=== PATIENT | male | born 1960 | race Caucasian/White ===

== ENCOUNTER 2016-11-17 00:17 | Emergency (ER) | payer BC, MEDICAID ==
[2016-11-17] MEDS ORDERED: Sodium Chloride 0.9% 1,000 ML IV ONE ×2 (00:41→03:30)
[2016-11-17 00:48] LABS: BASO % 0.5 % (0.0-2.0); EOS # 0.1 K/uL (0.0-0.7); EOS % 1.4 % (0.0-4.0); HEMATOCRIT 44.3 % (35.0-51.0); LYMPH # 3.4 K/uL (1.0-4.3); LYMPH % 54.8 % (20.0-40.0); MEAN CORPUSCULAR HEMOGLOBIN 30.8 pg (27.0-31.0); MEAN CORPUSCULAR HGB CONC 33.5 g/dL (33.0-37.0); MEAN PLATELET VOLUME 9.2 fL (7.2-11.7); MONO # 0.4 K/uL (0.0-0.8); MONO % 6.8 % (0.0-10.0); NRBC % 0.1 % (0.0-2.0); RED CELL DISTRIBUTION WIDTH 14.1 % (11.5-14.5); WHITE BLOOD COUNT 6.2 K/uL (4.8-10.8)
[2016-11-17 00:58] LABS: CHLORIDE 103 mmol/L (98-107)
[2016-11-17 00:59] LABS: SODIUM 141 mmol/L (132-148)
[2016-11-17 01:01] LABS: AST/SGOT 40 U/L (17-59); BILIRUBIN,TOTAL 0.4 mg/dL (0.2-1.3); CARBON DIOXIDE 20 mmol/L (22-30); GFR AFRICAN-AMERICAN > 60
[2016-11-17 01:02] LABS: ALKALINE PHOSPHATASE 49 U/L (38-126); ALT/SGPT 44 U/L (21-72); BLOOD UREA NITROGEN 14 mg/dL (9-20); CALCIUM 8.9 mg/dl (8.6-10.4); GLUCOSE,RANDOM 164 mg/dL (75-110)
--- NOTE | 2016-11-17 01:11 | CT ---
EXAM: CT Head Without Intravenous Contrast CLINICAL HISTORY: 55 years old, male; Pain; Headache; Additional info: Fall TECHNIQUE: Axial computed tomography images of the head/brain without intravenous contrast. All CT scans at this facility use one or more dose reduction techniques, viz.: automated exposure control; ma/kV adjustment per patient size (including targeted exams where dose is matched to indication; i.e. head); or iterative reconstruction technique. Coronal and sagittal reformatted images were created and reviewed. COMPARISON: No relevant prior studies available. FINDINGS: Brain: No intracranial hemorrhage. No mass. No edema. Ventricles: No hydrocephalus. Bones/joints: No acute fracture. Soft tissues: Unremarkable. Vasculature: Mild atherosclerotic disease of intracranial arteries. Sinuses: Mild mucosal thickening of LEFT maxillary sinus. Scattered minimal mucosal thickening of remaining sinuses. Mastoid air cells: No mastoid effusion. Orbits: Unremarkable as visualized. IMPRESSION: 1. No intracranial hemorrhage. 2. Incidental/non-acute findings are described above.
--- NOTE | 2016-11-17 01:19 | C.PDOC ---
History Of Present Illness Patient is a 55 y/o male who presents to the ED by EMS with a complaint of alcohol intoxication. Patient's states patient drank a lot at a green party tonight and was found on the bathroom floor unresponsive. Patient currently awake and vomiting. No other complaints at this time. Chief Complaint (Nursing): Substance Abuse History Per: Patient, Family () History/Exam Limitations: no limitations Onset/Duration Of Symptoms: Hrs (symptoms began tonight at a green party) Current Symptoms Are (Timing): Still Present Modifying Factor(s): Alcohol Recent travel outside of the [place]: No Additional History Per: Patient, Past Medical History Reviewed: Historical Data, Nursing Documentation, Vital Signs Vital Signs: Last Vital Signs Temp 97.4 F L 11/17/16 04:30 Pulse 83 11/17/16 04:30 Resp 16 11/17/16 04:30 BP 137/84 11/17/16 04:30 Pulse Ox 95 11/17/16 05:35 - Medical History PMH: No Chronic Diseases Surgical History: No Surg Hx Family History: States: Unknown Family Hx - Social History Hx Tobacco Use: No Hx Alcohol Use: Yes Hx Substance Use: No - Immunization History Hx Tetanus Toxoid Vaccination: No Hx Influenza Vaccination: Yes Hx Pneumococcal Vaccination: No Review Of Systems Constitutional: Positive for: Other (intoxicated). Negative for: Fever, Chills Gastrointestinal: Positive for: Vomiting (s/p fall ) Physical Exam - Physical Exam Appears: Other (lethargic) Skin: Normal Color, Warm, Dry Head: Atraumatic, Normacephalic Oral Mucosa: Moist Chest: Symmetrical Cardiovascular: Rhythm Regular, No Murmur Respiratory: Normal Breath Sounds, No Rales, No Rhonchi, No Wheezing Extremity: Normal ROM (x4) ED Course And Treatment - Laboratory Results Result Diagrams: 11/17/16 00:45 11/17/16 00:45 ECG: Interpreted By Me, Viewed By Me ECG Rhythm: Sinus Rhythm, 1st Degree HB, ST/T Changes, Nonspecific Changes ECG Interpretation: No Acute Changes, Abnormal Interpretation Of ECG: Sinus nrhythm with 1st degree av block.no acute changes .non spc intraventricular defect. abnormal tracings. Rate From EC O2 Sat by Pulse Oximetry: 95 (room air) Pulse Ox Interpretation: Normal Medical Decision Making Medical Decision Making: Plan: EKG and blood work ordered. IV fluids administered. Disposition Counseled Patient/Family Regarding: Diagnosis - Disposition Referrals: [facility] [Outside] Disposition: HOME/ ROUTINE Disposition Time: 05:38 Condition: STABLE Instructions: Abuse of Alcohol (ED), Polysubstance Abuse (ED) Forms: [facility] (Angolan), Gen Discharge Inst Estonian Print Language: MAURITIAN - POA Present On Arrival: None - Clinical Impression Clinical Impression: Drug abuse, Alcohol abuse - Scribe Statement The provider has reviewed the documentation as recorded by the Scribe Reha Johnson All medical record entries made by the Scribe were at my direction and personally dictated by me. I have reviewed the chart and agree that the record accurately reflects my personal performance of the history, physical exam, medical decision making, and the department course for this patient. I have also personally directed, reviewed, and agree with the discharge instructions and disposition.
[2016-11-17 01:25] LABS: POTASSIUM 3.4 mmol/L (3.6-5.2)
[2016-11-17 01:33] LABS: TOTAL PROTEIN 8.2 g/dL (6.3-8.3)
[2016-11-17 02:14] LABS: ALCOHOL SERUM 126 mg/dl (0-10)
[2016-11-17 02:26] LABS: ALB/GLOB RATIO 1.2 (1.0-2.1)
[2016-11-17] MEDS ORDERED: Sodium Chloride 0.9% 1,000 ML ONE (03:34)
[2016-11-17 05:57] VITALS: BP 136/88; PULSE 92; RESP 18; TEMP 98.4; O2SAT 98
--- NOTE | 2016-11-20 18:42 | CARD ---
APPROVED REPORT EKG Measurement Heart [id number] <Conclusion> Sinus rhythm with 1st degree AV block Nonspecific intraventricular block Nonspecific T wave abnormality Abnormal ECG
== END 2016-11-17 05:50 | disposition home or self-care (01) ==
LOC: C.ER 00:17
DX: F10.10 Alcohol abuse, uncomplicated (principal); F19.10 Other psychoactive substance abuse, uncomplicated; Y90.6 Blood alcohol level of 120-199 mg/100 ml
CPT/HCPCS: 70450; 80053; 84484; 85025; 93005; 96360; 99285; G0480; J7040